=== PATIENT | female | born 1965 | race Caucasian/White ===

== ENCOUNTER 2016-04-14 19:14 | Emergency (ER) | payer OTHER ==
[~2016-04-14] VITALS: Ht 162.6 cm; Wt 110.0 kg
[~2016-04-14 19:14] MED LIST: ADVAIR 500/501 DISK IH; AMOX TR-K CLV1 EAC4 PO; BACLOFEN10 MG PO; BACTRIM,SEPT1 TABLET PO; CHERATUSSIN AC473 ML PO; INDERAL10 MG PO; KEPPRA500 MG PO; LAMICTAL100 MG PO; METOPROLOL SUC100 MG PO; MIRTAZAPINE15 MG PO; NAPROSYN500 MG PO; ONDANSETRON HCL4 MG PO; PREDNISONE; PREDNISONE20 MG PO; PREDNISONE5 MG PO; PROVENTIL2.5 MG/3 M IH; SINGULAIR10 MG PO; SUMATRIPTAN SU100 MG PO; TESSALON200 MG PO; TRAMADOL HCL50 MG PO; VENLAFAXINE HC100 MG PO; VENLAFAXINE HCL75 MG PO; VENLAFAXINE225 MG PO; VENTOLIN HFA18 GM IH
[2016-04-14] MEDS ORDERED: AUGMENTIN875 MG PO (22:55)
[2016-04-14] MEDS ORDERED: PERCOCET 5/31 TABLET PO (22:55)
[2016-04-14 23:09] VITALS: BP 162/94
== END 2016-04-14 23:10 | disposition home or self-care (01) ==
LOC: RME 19:14 → EME 19:14 → RME 23:10
DX: S61.431A Puncture wound without foreign body of right hand, initial encounter (principal); W54.0XXA Bitten by dog, initial encounter
CPT/HCPCS: 73130; 99281; 99284

== ENCOUNTER → 2016-07-01 | Outpatient (CLI) | payer OTHER ==
[~2016-07-01] MED LIST changes: +AUGMENTIN875 MG PO; +PERCOCET 5/31 TABLET PO
== END | disposition home or self-care (01) ==
LOC: CDC 11:24
DX: Z01.810 Encounter for preprocedural cardiovascular examination (principal); G56.01 Carpal tunnel syndrome, right upper limb; G56.21 Lesion of ulnar nerve, right upper limb; M79.641 Pain in right hand
CPT/HCPCS: 93000

== ENCOUNTER → 2017-02-04 | Outpatient (CLI) | payer OTHER ==
[~2017-02-04] MED LIST changes: +ABILIFY30 MG PO; +CONCERTA36 MG PO; +DULERA 200 MCG/13 GM IH; +LIPITOR80 MG PO; +METFORMIN HCL1000 MG PO; -MIRTAZAPINE15 MG PO; +PROVENTIL,2.5 MG/3 M IH; -PROVENTIL2.5 MG/3 M IH; +REMERON45 MG PO; +THEO-24200 MG PO; +TOPROL XL100 MG PO; +VERAPAMIL HCL240 MG PO; +VIMPAT150 MG PO
== END | disposition home or self-care (01) ==
LOC: CDC 09:35
DX: Z01.810 Encounter for preprocedural cardiovascular examination (principal); M65.351 Trigger finger, right little finger
CPT/HCPCS: 93000

== ENCOUNTER 2017-02-17 10:43 | Day surgery (SDC) | payer OTHER ==
[~2017-02-17] VITALS: Ht 162.6 cm; Wt 94.8 kg
[2017-02-17 11:37] VITALS: BP 159/81
[2017-02-17 16:26] VITALS: BP 131/81
[2017-02-17 17:39] VITALS: BP 130/70
== END 2017-02-17 17:46 | disposition home or self-care (01) ==
LOC: SDC 10:43
PROVIDERS: Orthopaedic Surgery Hand Surgery
DX: M72.0 Palmar fascial fibromatosis [Dupuytren] (principal); M65.841 Other synovitis and tenosynovitis, right hand; M65.331 Trigger finger, right middle finger; M65.341 Trigger finger, right ring finger; M65.351 Trigger finger, right little finger; I10 Essential (primary) hypertension; J44.9 Chronic obstructive pulmonary disease, unspecified; K21.9 Gastro-esophageal reflux disease without esophagitis; E11.9 Type 2 diabetes mellitus without complications; Z79.84 Long term (current) use of oral hypoglycemic drugs
CPT/HCPCS: 80198; 82948; J1170; J2250; J2405; J3010; S0020

== ENCOUNTER 2017-05-21 02:41 | Emergency (ER) | payer OTHER ==
[~2017-05-21] VITALS: Ht 162.6 cm; Wt 93.3 kg
[2017-05-21] MEDS ORDERED: PERMETHRIN60 GM TP (03:46)
[2017-05-21 04:32] VITALS: BP 152/99
== END 2017-05-21 04:34 | disposition home or self-care (01) ==
LOC: EME 02:41
DX: B86 Scabies (principal); J44.9 Chronic obstructive pulmonary disease, unspecified; G43.909 Migraine, unspecified, not intractable, without status migrainosus; R56.9 Unspecified convulsions; Z79.84 Long term (current) use of oral hypoglycemic drugs; Z91.040 Latex allergy status; Z88.1 Allergy status to other antibiotic agents; Z88.8 Allergy status to other drugs, medicaments and biological substances
CPT/HCPCS: 99281; 99283; Q0177